=== PATIENT | male | born 1985 | race Two or more races ===

== ENCOUNTER 2016-09-16 09:18 | Emergency (ER) | payer MEDICAID ==
[~2016-09-16 09:18] MED LIST: IBUP200C8
== END 2016-09-16 10:17 | disposition left against medical advice (07) ==
LOC: ED 10:11
DX: M79.601 Pain in right arm (principal)

== ENCOUNTER 2018-02-20 11:09 | Emergency (ER) | payer MEDICAID ==
[~2018-02-20] VITALS: Ht 180.3 cm; Wt 75.5 kg
[2018-02-20 11:17] VITALS: BP 116/75
[2018-02-20] MEDS ORDERED: LIDOCAINE 1%-EPI 1:100K, 30ML ONE (11:58)
[2018-02-20] MEDS ORDERED: LIDOCAINE 2%, 20ML SQ ONE (12:00)
[2018-02-20] MEDS ORDERED: DIPH,PERTUSS(ACELL),TET VAC/PF 0.5 ML IM-VACC ONE ×2 (12:00→12:52)
== END 2018-02-20 13:50 | disposition home or self-care (01) ==
LOC: ED 12:00
DX: S01.411A Laceration without foreign body of right cheek and temporomandibular area, initial encounter (principal); F12.10 Cannabis abuse, uncomplicated
CPT/HCPCS: 12015; 90471; 90715; 99283

== ENCOUNTER 2018-07-04 00:17 | Emergency (ER) | payer SELFPAY ==
[~2018-07-04] VITALS: Ht 180.3 cm; Wt 71.0 kg
--- NOTE | 2018-07-04 00:27 | NUR ---
PT WANG CABRERA FROM [facility] FOR REPORTEDLY MAKING SI COMMENTS. PT STATES THAT HE HAS NO SUICIDAL THOUGHTS AND JUST WANTS HELP FOR METHAMPHETAMINE RECOVERY. PT REPORTS LAST METH USE 3 DAYS AGO. UPON ARRIVAL TO [facility] ED, PT IS CALM AND COOPERATIVE. PT CHANGED INTO GOWN AND STRIPPED OF PERSONAL BELONGINGS. PT BELONGINGS PLACED IN 2 BAGS AND LABELED AND PLACED IN LOCKED STORAGE. ROOM SECURED FOR PATIENT AND STAFF SAFETY. PT EDUCATED ABOUT ER PROCESS AND VERBALIZES UNDERSTANDING. AWAITING ERP AT THIS TIME.
[2018-07-04 01:19] LABS: MEAN CORPUSCULAR HEMOGLOBIN 30.1 pg (27.5-34.5); MEAN CORPUSCULAR HGB CONC 35.4 g/dL (33.2-36.2); MEAN CORPUSCULAR VOLUME 85.1 fL (81-97); MEAN PLATELET VOLUME 7.5 fL (7.4-10.4); PLATELET COUNT 230 x10^3/uL (130-400); RED BLOOD COUNT 4.61 x10^6/uL (4.38-5.82); RED CELL DISTRIBUTION WIDTH 13.4 % (9.4-14.8)
[2018-07-04 01:30] LABS: ALANINE AMINOTRANSFERASE 38 U/L (12-78); ANION GAP 10 mmol/L (5-15); CALCIUM 7.9 mg/dL (8.5-10.1); CHLORIDE 98 mmol/L (98-107)
[2018-07-04 01:33] LABS: ALKALINE PHOSPHATASE 57 U/L (45-117); TOTAL PROTEIN 7.5 g/dL (6.4-8.2)
[2018-07-04 01:47] LABS: ACETAMINOPHEN < 2 mcg/mL (10-30); SALICYLATE LEVEL < 1.7 mg/dL (2.8-20.0)
[2018-07-04 03:16] LABS: BASOPHILS % (AUTO) 0 % (0-1); EOSINOPHILS % (AUTO) 0 % (1-7); LYMPHOCYTES # (AUTO) 1.21 x10^3/uL (1-3.4); LYMPHOCYTES % (AUTO) 10 % (22-44); MD SCAN; MONOCYTES # (AUTO) 0.87 x10^3/uL (0.2-0.8); MONOCYTES % (AUTO) 7 % (2-9); NEUTROPHILS # (AUTO) 10.57 x10^3/uL (1.8-6.8); NEUTROPHILS % (AUTO) 84 % (42-75)
--- NOTE | 2018-07-04 03:56 | NUR ---
PT D/C WITH D/C SUMMARY AND TAXI TO [facility] PER PATIENT REQUEST. [facility] AWARE OF PT COMING IN FOR ASSESSMENT AND POSSIBLE ADMISSION. PT DENIES ANY OTHER NEEDS PERTAINING TO THIS VISIT. PT PROVIDED WITH CLOTHES FOR D/C.
[2018-07-04 03:59] VITALS: BP 134/89
== END 2018-07-04 04:05 | disposition home or self-care (01) ==
LOC: ED 03:43
DX: F15.10 Other stimulant abuse, uncomplicated (principal); F12.10 Cannabis abuse, uncomplicated
CPT/HCPCS: 36415; 80053; 80307; 80329; 85025; 99283; G0480

== ENCOUNTER 2018-07-04 05:44 | Inpatient (IN) | payer OTHER ==
[~2018-07-04] VITALS: Ht 180.3 cm; Wt 71.4 kg
--- NOTE | 2018-07-04 05:55 | NUR ---
PT BIB [facility] AFTER BEING D/C FROM [facility] ONE HOUR PRIOR. PT WENT TO [facility] FOR ADMISSION TO HOSPITAL FOR METHAMPHETAMINE RECOVERY AND REPORTEDLY SPIKED A FEVER. UPON RETURN TO [facility], PT FOUND TO HAVE T OF 102.1. PT IN GOWN IN [facility] AT THIS TIME. PT SEEN BY DR. VANN, AND PT VERBALIZES UNDERSTANDING OF POC. PT ATTACHED TO VS MACHINES. PT DENIES ANY OTHER NEEDS AT THIS TIME. CALL LIGHT IS WITHIN REACH.
[2018-07-04] MEDS ORDERED: ACETAMINOPHEN 500 MG TABLET PO ONE (06:00)
[2018-07-04] MEDS ORDERED: ACETAMINOPHEN 500 MG TABLET ONE (06:02)
--- NOTE | 2018-07-04 06:08 | NUR ---
PT SWABBED FOR FLU. PT MEDICATED PER MAR. PT FLU SAMPLE TUBED TO LAB
[2018-07-04 06:17] LABS: MEAN CORPUSCULAR HEMOGLOBIN 30.1 pg (27.5-34.5); MEAN CORPUSCULAR HGB CONC 34.9 g/dL (33.2-36.2); MEAN CORPUSCULAR VOLUME 86.1 fL (81-97); MEAN PLATELET VOLUME 7.4 fL (7.4-10.4); PLATELET COUNT 224 x10^3/uL (130-400); RED BLOOD COUNT 4.51 x10^6/uL (4.38-5.82); RED CELL DISTRIBUTION WIDTH 13.2 % (9.4-14.8)
[2018-07-04 06:28] LABS: ALBUMIN 3.2 g/dL (3.4-5.0); ANION GAP 7 mmol/L (5-15); CALCIUM 7.9 mg/dL (8.5-10.1); CHLORIDE 97 mmol/L (98-107); CREATININE 0.94 mg/dL (0.7-1.3)
[2018-07-04 06:33] LABS: RAPID INFLUENZA A Negative (Negative); RAPID INFLUENZA B Negative (Negative)
[2018-07-04 06:45] LABS: BASOPHILS # (AUTO) 0.01 x10^3/uL (0-0.1); BASOPHILS % (AUTO) 0 % (0-1); EOSINOPHILS % (AUTO) 0 % (1-7); LYMPHOCYTES # (AUTO) 1.02 x10^3/uL (1-3.4); LYMPHOCYTES % (AUTO) 8 % (22-44); MD SCAN; MONOCYTES # (AUTO) 0.78 x10^3/uL (0.2-0.8); MONOCYTES % (AUTO) 6 % (2-9); NEUTROPHILS # (AUTO) 11.42 x10^3/uL (1.8-6.8); NEUTROPHILS % (AUTO) 86 % (42-75)
--- NOTE | 2018-07-04 07:06 | NUR ---
Recieved beside report from AARTI Reyes. All questions answered. Assuming care of pt. Pt to call and decided discharge plan.
[2018-07-04] MEDS ORDERED: CEFTRIAXONE PMX 1GM/50ML 50 ML IV ONE (07:30)
[2018-07-04] MEDS ORDERED: AZITHROMYCIN 500 MG in SODIUM CHLORIDE 0.9% 250 ML IV ONE (07:30)
--- NOTE | 2018-07-04 08:22 | NUR ---
Provided report to AARTI Davis. All questions answered. Pt ready to transfer to floor from ED. Pt has PIV medicaitons infusing per [facility] upon departure from ED to floor.
--- NOTE | 2018-07-04 08:39 | NUR ---
Pt transfered to floor from ED with PIV medications infusing per [facility]. PT left with all personal belongigns.
[2018-07-04] MEDS ORDERED: ZOLPIDEM 5MG TABLET PO PRN (13:00)
[2018-07-04] MEDS ORDERED: DOCUSATE 100 MG CAPSULE PO PRN (13:00)
[2018-07-04] MEDS ORDERED: GUAIFENESIN/DM 200-20MG, 10ML UDC PO PRN (13:00)
[2018-07-04] MEDS ORDERED: ONDANSETRON 2MG/ML, 2ML IVPush PRN (13:00)
[2018-07-04] MEDS ORDERED: LIDODERM 5% PATCH TD PRN (13:00)
[2018-07-04] MEDS ORDERED: ONDANSETRON ODT 4 MG PO PRN (13:00)
[2018-07-04] MEDS ORDERED: BISACODYL 10 MG SUPP PR PRN (13:00)
[2018-07-04] MEDS ORDERED: hydrALAzine 20 MG/ML, 1ML IVPush PRN (13:00)
[2018-07-04] MEDS ORDERED: POLYETHYLENE GLYCOL 17 GM PACKET PO PRN (13:00)
[2018-07-04] MEDS ORDERED: ACETAMINOPHEN 325 MG TABLET PO PRN (13:00)
[2018-07-04] MEDS ORDERED: LABETALOL 5 MG/ML SYRINGE IVPush PRN (13:00)
[2018-07-04 13:41] LABS: HCT (SEDRATE) 38.7 % (39.2-51.8)
[2018-07-04] MEDS: ENOXAPARIN 40 MG/0.4 ML SQ SCH ×2 (13:49→13:59)
[2018-07-04] MEDS: CEFTRIAXONE PMX 1GM/50ML 50 ML IV SCH (13:49)
[2018-07-04] MEDS: AZITHROMYCIN 500 MG in SODIUM CHLORIDE 0.9% 250 ML IV SCH (13:49)
[2018-07-04] MEDS: methylPREDNISolone SOD SUCC 40 MG/ML IVPush SCH ×2 (13:49→21:04)
[2018-07-04] MEDS: NICOTINE 21 MG/24 HR PATCH.TD24 TD SCH (13:50)
[2018-07-04] MEDS: LACTATED RINGERS 1,000 ML IV SCH (13:50)
[2018-07-04 14:01] LABS: FREE T4 (FREE THYROXINE) 1.46 ng/dL (0.76-1.46); THYROID STIMULATING HORMONE 2.36 mIU/L (0.358-3.740)
[2018-07-04 14:35] VITALS: BP 105/73
[2018-07-04 19:47] VITALS: BP 102/71
[2018-07-04] MEDS: FAMOTIDINE 20 MG TABLET PO SCH (21:04)
[2018-07-05 01:04] VITALS: BP 98/65
[2018-07-05] MEDS: CEFTRIAXONE PMX 1GM/50ML 50 ML IV SCH ×2 (01:28→14:01)
[2018-07-05] MEDS: LACTATED RINGERS 1,000 ML IV SCH ×2 (01:28→08:34)
[2018-07-05] MEDS: methylPREDNISolone SOD SUCC 40 MG/ML IVPush SCH ×4 (01:28→20:00)
[2018-07-05 04:36] LABS: BASOPHILS % (AUTO) 0 % (0-1); EOSINOPHILS % (AUTO) 0 % (1-7); LYMPHOCYTES # (AUTO) 0.61 x10^3/uL (1-3.4); LYMPHOCYTES % (AUTO) 11 % (22-44); MD NO; MEAN CORPUSCULAR HEMOGLOBIN 29.7 pg (27.5-34.5); MEAN CORPUSCULAR HGB CONC 34.1 g/dL (33.2-36.2); MEAN CORPUSCULAR VOLUME 87.1 fL (81-97); MEAN PLATELET VOLUME 8.2 fL (7.4-10.4); MONOCYTES # (AUTO) 0.13 x10^3/uL (0.2-0.8); MONOCYTES % (AUTO) 2 % (2-9); NEUTROPHILS # (AUTO) 4.96 x10^3/uL (1.8-6.8); NEUTROPHILS % (AUTO) 87 % (42-75); PLATELET COUNT 234 x10^3/uL (130-400); RED CELL DISTRIBUTION WIDTH 13.4 % (9.4-14.8)
[2018-07-05 04:41] LABS: ANION GAP 3 mmol/L (5-15); CHLORIDE 103 mmol/L (98-107)
[2018-07-05 04:49] LABS: CREATININE 0.75 mg/dL (0.7-1.3)
[2018-07-05 04:53] LABS: C-REACTIVE PROTEIN, QUANT > 19.00 mg/dL (0.02-0.49)
[2018-07-05 08:01] VITALS: BP 93/60
[2018-07-05] MEDS: FAMOTIDINE 20 MG TABLET PO SCH ×2 (08:34→20:00)
[2018-07-05] MEDS: NICOTINE 21 MG/24 HR PATCH.TD24 TD SCH (13:00)
[2018-07-05 14:00] VITALS: BP 108/72
[2018-07-05] MEDS: AZITHROMYCIN 500 MG in SODIUM CHLORIDE 0.9% 250 ML IV SCH (14:01)
[2018-07-05 20:32] VITALS: BP 104/66
[2018-07-06] MEDS: CEFTRIAXONE PMX 1GM/50ML 50 ML IV SCH ×2 (01:40→13:57)
[2018-07-06] MEDS: methylPREDNISolone SOD SUCC 40 MG/ML IVPush SCH ×3 (01:40→13:57)
[2018-07-06 02:10] VITALS: BP 102/61
[2018-07-06] MEDS: LACTATED RINGERS 1,000 ML IV SCH ×2 (05:00→06:17)
[2018-07-06 05:06] LABS: BASOPHILS % (AUTO) 0 % (0-1); EOSINOPHILS % (AUTO) 0 % (1-7); LYMPHOCYTES # (AUTO) 0.82 x10^3/uL (1-3.4); LYMPHOCYTES % (AUTO) 8 % (22-44); MD NO; MEAN CORPUSCULAR HEMOGLOBIN 29.7 pg (27.5-34.5); MEAN CORPUSCULAR HGB CONC 33.9 g/dL (33.2-36.2); MEAN CORPUSCULAR VOLUME 87.5 fL (81-97); MEAN PLATELET VOLUME 8.3 fL (7.4-10.4); MONOCYTES # (AUTO) 0.46 x10^3/uL (0.2-0.8); MONOCYTES % (AUTO) 4 % (2-9); NEUTROPHILS # (AUTO) 9.46 x10^3/uL (1.8-6.8); NEUTROPHILS % (AUTO) 88 % (42-75); PLATELET COUNT 249 x10^3/uL (130-400); RED BLOOD COUNT 3.87 x10^6/uL (4.38-5.82); RED CELL DISTRIBUTION WIDTH 13.8 % (9.4-14.8)
[2018-07-06 05:09] LABS: ANION GAP 6 mmol/L (5-15); CHLORIDE 106 mmol/L (98-107)
[2018-07-06 05:11] LABS: CREATININE 0.73 mg/dL (0.7-1.3)
[2018-07-06 07:09] VITALS: BP 96/58
[2018-07-06] MEDS: FAMOTIDINE 20 MG TABLET PO SCH (07:38)
[2018-07-06 12:36] VITALS: BP 92/57
[2018-07-06] MEDS: ENOXAPARIN 40 MG/0.4 ML SQ SCH (13:00)
[2018-07-06] MEDS: NICOTINE 21 MG/24 HR PATCH.TD24 TD SCH (13:57)
[2018-07-06] MEDS: AZITHROMYCIN 500 MG in SODIUM CHLORIDE 0.9% 250 ML IV SCH (15:11)
== END 2018-07-06 16:03 | disposition left against medical advice (07) | DRG 871 ==
LOC: ED 05:51 → 3NW 08:57
PROVIDERS: ADMIT Hospitalist; ATTEND Hospitalist
DX: A41.9 Sepsis, unspecified organism (principal); J18.1 Lobar pneumonia, unspecified organism; J96.91 Respiratory failure, unspecified with hypoxia; Z53.21 Procedure and treatment not carried out due to patient leaving prior to being seen by health care provider; F12.90 Cannabis use, unspecified, uncomplicated; F15.10 Other stimulant abuse, uncomplicated; Z72.0 Tobacco use
CPT/HCPCS: 36415; 71045; 80048; 80074; 82040; 83605; 84145; 84439; 84443; 85025; 85651; 86140; 87040; 87400; 87806; 93005; 96374; 99285; G0378; J0456; J0696; J1650; Q0162; G0475; J2920; J7050; J7120